=== PATIENT | male | born 1955 | race Caucasian/White ===

== ENCOUNTER → 2022-09-09 12:09 | Outpatient (BNVA) | payer MEDICARE, OTHER, SELFPAY | PROVIDERS: Visit Provider Family Medicine | DX: R07.81 Pleurodynia (principal) | CPT/HCPCS: 71046 ==

== ENCOUNTER 2023-05-05 13:08 | Outpatient (CLI) | payer MEDICARE, OTHER, SELFPAY ==
--- NOTE | 2023-05-05 13:52 | MR_ITS ---
WS: [id number] MRI RIGHT SHOULDER NONCONTRAST TECHNIQUE: Sagittal T2, coronal T1, T2 and proton density imaging. Axial gradient PDE imaging. CLINICAL INFORMATION: RIGHT SUPRASPINATUS TENDINITIS COMPARISON: None. 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 Subacromial subdelt oid fluid. Subacromial spurring with impingement on the distal supraspinatus. Mild chronic thinning o f the distal supraspinatus. Tendinopathy distal supraspinatus. Tiny insertional tear. Tiny insertiona l tear distal infraspinatus. Normal teres minor.Distal subscapularis appears intact. Normal biceps tendon in the bicipital groove. Degenerative fraying of the glenoid labrum. Normal intra-articular biceps tendon. MR/MR shoulder RT wo con* [id number] IMPRESSION: 1. 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 Subacro mial subdeltoid fluid. Impingement on the distal supraspinatus. 2. Tiny insertional tear at the distal supraspinatus. Tendinopathy distal supr aspinatus. 3. Tiny insertional tear infraspinatus. 4. Rotator cuff is otherwise normal in appearance. 5. Biceps tendon appears intact within the bicipital groove. 6. No other acute findings.
== END 2023-05-05 13:09 | disposition home or self-care (01) ==
PROVIDERS: PCP Internal Medicine; Visit Provider Internal Medicine
DX: M75.91 Shoulder lesion, unspecified, right shoulder (principal); M19.011 Primary osteoarthritis, right shoulder; M75.101 Unspecified rotator cuff tear or rupture of right shoulder, not specified as traumatic
CPT/HCPCS: 73221

== ENCOUNTER → 2024-09-09 13:30 | Outpatient (BNVA) | payer MEDICARE, OTHER, SELFPAY | PROVIDERS: PCP Internal Medicine; Visit Provider Nurse Practitioner Family | DX: L57.8 Other skin changes due to chronic exposure to nonionizing radiation (principal); D48.5 Neoplasm of uncertain behavior of skin; L57.0 Actinic keratosis | CPT/HCPCS: 11102; 17000; 99203 ==

== ENCOUNTER → 2024-10-04 12:54 | Outpatient (BNVA) | payer MEDICARE, OTHER, SELFPAY | PROVIDERS: PCP Internal Medicine; Visit Provider Dermatology | DX: D48.5 Neoplasm of uncertain behavior of skin (principal); R23.8 Other skin changes; R20.8 Other disturbances of skin sensation; L53.8 Other specified erythematous conditions | CPT/HCPCS: 11403; 13101 ==

== ENCOUNTER → 2025-02-28 14:43 | Outpatient (BNVA) | payer MEDICARE, OTHER, SELFPAY | PROVIDERS: PCP Internal Medicine; Visit Provider Nurse Practitioner Family | DX: L57.8 Other skin changes due to chronic exposure to nonionizing radiation (principal); L81.4 Other melanin hyperpigmentation; Z08 Encounter for follow-up examination after completed treatment for malignant neoplasm; Z86.007 Personal history of in-situ neoplasm of skin; L82.0 Inflamed seborrheic keratosis; R20.8 Other disturbances of skin sensation; L53.8 Other specified erythematous conditions; L29.89 Other pruritus; Z78.9 Other specified health status; L91.8 Other hypertrophic disorders of the skin; L57.0 Actinic keratosis | CPT/HCPCS: 17000; 17110; 99213 ==

== ENCOUNTER → 2025-08-09 12:58 | Outpatient (BNVA) | payer MEDICARE, OTHER, SELFPAY | PROVIDERS: PCP Nurse Practitioner Family; Visit Provider Nurse Practitioner Family | DX: E11.9 Type 2 diabetes mellitus without complications (principal) | CPT/HCPCS: 80053; 80061; 83036; 84443; 85025 ==

== ENCOUNTER → 2025-08-23 13:31 | Outpatient (BNVA) | payer MEDICARE, OTHER, SELFPAY | PROVIDERS: PCP Nurse Practitioner Family; Visit Provider Nurse Practitioner Family | DX: L57.8 Other skin changes due to chronic exposure to nonionizing radiation (principal); L81.4 Other melanin hyperpigmentation; L82.1 Other seborrheic keratosis; Z08 Encounter for follow-up examination after completed treatment for malignant neoplasm; Z86.007 Personal history of in-situ neoplasm of skin; L82.0 Inflamed seborrheic keratosis; Z78.9 Other specified health status; L53.8 Other specified erythematous conditions; R58 Hemorrhage, not elsewhere classified; R20.8 Other disturbances of skin sensation; L29.89 Other pruritus; L57.0 Actinic keratosis; D22.5 Melanocytic nevi of trunk | CPT/HCPCS: 17000; 17110; 99213 ==